=== PATIENT | female | born 1980 | race Caucasian/White ===

== ENCOUNTER → 2017-07-16 10:44 | Outpatient (CLI) | payer OTHER, SELFPAY ==
--- NOTE | 2017-07-16 10:47 | ECHOD_ITS ---
Reason For Study: Arrhythmia Procedure This was a 2D Doppler, Color Flow transthoracic echocardiogram. Exam performed in department. Left Ventricle Normal LV size. Left ventricular systolic function is normal. The estimated ejection fraction is 65 %. No regional wall motion abnormalities noted. Right Ventricle Normal RV size. Normal systolic function. Atria Normal left atrium. Normal right atrium. Mitral Valve Bileaflet diffuse mitral valve thickening. Trivial eccentric mitral valve insufficiency. Tricuspid Valve Normal tricuspid valve. Aortic Valve Normal aortic valve. Trisinus/trileaflet aortic valve. Pulmonic Valve Normal pulmonic valve. Great Vessels Normal aortic root. The pulmonary artery is normal size. Pericardium/Pleural No pericardial effusion. MMode/2D Measurements & Calculations LVIDd: 3.5 cm IVSd: 1.00 cm Ao root diam: 2.0 cm LVIDs: 2.4 cm LVPWd: 0.67 cm LA dimension: 3.1 cm RVDd: 2.8 cm FS: 31.3 % LAV(MOD-bp): 33.2 ml LA A4 area: 13.2 cm2 RA A4 area: 9.6 cm2 LAV(MOD-bp) Indexed: 21.8 ml/m2 LAV(MOD-sp2): 31.4 ml LAV(MOD-sp4): 28.9 ml Time Measurements MV dec time: 0.23 sec Doppler Measurements & Calculations MV E max niecy: 112.2 cm/sec MV V2 max: 134.8 cm/sec MV P1/2t max niecy: 136.8 cm/sec MV A max niecy: 59.9 cm/sec MV max P.3 mmHg MV P1/2t: 88.7 msec MV E/A: 1.9 MV V2 mean: 67.3 cm/sec MV dec slope: 451.5 cm/sec2 MV mean P.3 mmHg MVA(P1/2t): 2.5 cm2 MV V2 VTI: 30.8 cm Ao V2 max: 145.4 cm/sec LV V1 max: 123.5 cm/sec PA V2 max: 102.1 cm/sec Ao max P.5 mmHg LV V1 max P.1 mmHg Ao V2 mean: 89.3 cm/sec LV V1 mean P.7 mmHg Ao mean P.8 mmHg LV V1 mean: 74.8 cm/sec Ao V2 VTI: 28.5 cm LV V1 VTI: 25.5 cm Interpretation Summary Normal LV size. Left ventricular systolic function is normal. The estimated ejection fraction is 65 %. Bileaflet diffuse mitral valve thickening. Trivial eccentric mitral valve insufficiency. Ordering Physician: Eladio Marte Referring Physician: Eladio Marte Performed By: Virgil Rene RCS
== END ==
PROVIDERS: Family Provider Family Medicine; PCP Family Medicine; Visit Provider Internal Medicine Cardiovascular Disease
DX: R00.2 Palpitations (principal)
CPT/HCPCS: 93306

== ENCOUNTER → 2020-02-26 | Outpatient (CLI) | payer OTHER, SELFPAY ==
[2017-07-11 16:07] VITALS: BMI 23.2
[2020-03-02 03:06] LABS: Chlamydia By Nucleic Acid AMP Negative (Negative)
[2020-03-02 09:42] LABS: Gonococcus By Nucleic Acid AMP Negative (Negative)
[2020-03-03 19:17] LABS: HPV APTIMA, High Risk Negative (Negative)
[2020-03-03 19:18] LABS: HPV Reflexed? YES, CHARGE PATIENT
== END | disposition home or self-care (01) ==
LOC: LABSPEC 14:51
PROVIDERS: PCP Family Medicine; Visit Provider Student in an Organized Health Care Education/Training Program
DX: Z32.01 Encounter for pregnancy test, result positive (principal); Z11.3 Encounter for screening for infections with a predominantly sexual mode of transmission; Z12.4 Encounter for screening for malignant neoplasm of cervix
CPT/HCPCS: 87491; 87591; 87624; 88175; G0145

== ENCOUNTER → 2020-03-05 13:50 | Outpatient (CLI) | payer OTHER, SELFPAY ==
[2020-03-05 15:47] LABS: Color, Urine Yellow (Yellow); Glucose, Dipstick Normal (Normal); Ketone-Dipstick Negative (Negative); Leukocyte Esterase-Dipstick 25 /ul (Negative); Nitrite-Dipstick Negative (Negative); Occult Blood-Urine Negative /ul (Negative); Protein-Dipstick 15 mg/dl (Negative); Urine Bilirubin Dipstick Negative (Negative); Urine Clarity Clear (Clear); Urine Urobilinogen 1 mg/dl (Normal)
[2020-03-05 15:49] LABS: Absolute Lymphocyte Count 1.24 X10^3/uL (0.83-4.51); Absolute Neutrophil Count 4.4 X10^3/uL (2.0-7.7); Basophil# 0.04 X10^3/uL; Basophil% 0.6 % (0-1); Eosinophil# 0.12 X10^3/uL; Eosinophils% 1.9 % (0-5); Hemoglobin 12.7 g/dL (12.0-15.0); Lymphocyte # 1.24 X10^3/ul (4.0); Lymphocyte % 19.5 % (19-41); Mean Corp Hgb Conc 33.4 g/dL (32-36); Mean Corpuscular Hgb 32.2 pg (27.0-32.0); Mean Corpuscular Volume 96.2 fL (81-99); Mean Platelet Vol. 9.6 fl (6.2-12.0); Monocyte# 0.51 X10^3/uL; NRBC Flagged by Analyzer 0 % (0-5); Neutrophil # 4.44 X10^3/uL (2.7-7.7); Neutrophil % 69.8 % (47-70); Platelet Count 260 K/mm3 (150-450); RBC Distribution Width CV 12.3 % (11.6-14.6); RBC Distribution Width SD 43.7 fl (35.1-43.9); Red Blood Count 3.95 M/mm3 (4.2-5.4); White Blood Count 6.4 K/mm3 (4.4-11.0)
[2020-03-05 16:22] LABS: Amphetamine Urine VISTA NEGATIVE (<1000 ng/mL); Barbiturate Urine VISTA NEGATIVE (< 200 ng/mL); Benzodiazepine Urine VISTA NEGATIVE (< 200 ng/mL); Cocaine Urine VISTA NEGATIVE (< 300 ng/mL); Ecstacy Urine VISTA NEGATIVE (< 500 ng/mL); Methadone Urine VISTA NEGATIVE (< 300 ng/mL); PCP Urine VISTA NEGATIVE (< 25 ng/mL); THC Urine VISTA NEGATIVE (< 50 ng/mL); Vista UDS pH Range 8
[2020-03-05 21:20] LABS: HIV - WCH Non-Reactive (Nonreactive); Hepatitis B Surface Antigen Non-Reactive (Nonreactive); Hepatitis C Antibody Non-Reactive (Nonreactive); Rubella IgG 116.6 IU/mL
[2020-03-11 05:23] LABS: Prenatal RPR NONREACTIVE (NONREACTIVE)
[2020-03-24 14:39] LABS: CF, Screen Comment: (.); V-Zoster IgG (Immunity) 155 index (Immune >165)
== END ==
PROVIDERS: PCP Family Medicine; Visit Provider Student in an Organized Health Care Education/Training Program
DX: Z34.81 Encounter for supervision of other normal pregnancy, first trimester (principal)
CPT/HCPCS: 36415; 80307; 81002; 81220; 85025; 86703; 86762; 86787; 86803; 87086; 87088; 87340